=== PATIENT | male | born 1960 | race Caucasian/White ===

== ENCOUNTER 2019-03-03 22:25 | Emergency (ER) | payer BC, MEDICAID, OTHER ==
[~2019-03-03] VITALS: Ht 185.4 cm; Wt 124.1 kg
[~2019-03-03 22:25] MED LIST: ASPI-496 PO; ASPI-650 PO; ATOR10TA PO; DIAZ10TA4 PO; DICL100G19 SUBD; DICL100G25 SUBD; FENO145T32 PO; HYDR-3653 PO; POTA99TA3 PO
--- NOTE | 2019-03-04 00:17 | NUR ---
AWAITING FORMAL XR READING.
--- NOTE | 2019-03-04 01:24 | NUR ---
Assist RN: hard sole shoe provided. declined crutches. states he uses walker at home.
[2019-03-04 01:26] VITALS: BP 149/84
--- NOTE | 2019-03-04 01:35 | NUR ---
patient discharged with prescription and instruction. verbalized understanding. wheeled to discharge area.
== END 2019-03-04 01:28 | disposition home or self-care (01) ==
LOC: ED 03-04 01:05
DX: S92.414A Nondisplaced fracture of proximal phalanx of right great toe, initial encounter for closed fracture (principal); S92.591A Other fracture of right lesser toe(s), initial encounter for closed fracture; W22.03XA Walked into furniture, initial encounter; Y93.89 Activity, other specified; Y92.009 Unspecified place in unspecified non-institutional (private) residence as the place of occurrence of the external cause; Y99.8 Other external cause status
CPT/HCPCS: 29515; 99283